=== PATIENT | female | born 1975 | race Two or more races ===

== ENCOUNTER 2017-06-25 16:20 | Emergency (ER) | payer MEDICAID ==
[~2017-06-25] VITALS: Ht 162.6 cm; Wt 59.0 kg
[2017-06-25 19:48] VITALS: BP 120/81
[2017-06-25] MEDS ORDERED: LIDOCAINE 1% HCL (LOCAL ANESTH.) INJ 20ML MDV IJ ONE (20:00)
[2017-06-25] MEDS ORDERED: TETANUS-DIPTH-ACEL PERTUSSIS 0.5ML SYRG IM ONE (20:00)
== END 2017-06-25 20:24 | disposition home or self-care (01) ==
LOC: ER 16:26
DX: S61.211A Laceration without foreign body of left index finger without damage to nail, initial encounter (principal); S61.412A Laceration without foreign body of left hand, initial encounter; W25.XXXA Contact with sharp glass, initial encounter; Y93.G1 Activity, food preparation and clean up; Y92.89 Other specified places as the place of occurrence of the external cause; Y99.8 Other external cause status
CPT/HCPCS: 12002; 90471; 90715

== ENCOUNTER 2018-09-13 16:53 | Emergency (ER) | payer MEDICAID ==
[~2018-09-13] VITALS: Ht 162.6 cm; Wt 56.7 kg
[2018-09-13 21:04] VITALS: BP 93/52
== END 2018-09-13 21:07 | disposition home or self-care (01) ==
LOC: ER 16:54
DX: N63.10 Unspecified lump in the right breast, unspecified quadrant (principal); F17.210 Nicotine dependence, cigarettes, uncomplicated; Z90.710 Acquired absence of both cervix and uterus
CPT/HCPCS: 76642

== ENCOUNTER 2019-06-08 16:27 | Emergency (ER) | payer MEDICAID ==
[~2019-06-08] VITALS: Ht 162.6 cm; Wt 62.6 kg
[2019-06-08 17:57] VITALS: BP 103/73
[2019-06-08] MEDS ORDERED: KETOROLAC TROMETH 60MG/2ML VIAL IM ONE (18:15)
== END 2019-06-08 18:41 | disposition home or self-care (01) ==
LOC: ER 16:27
DX: J06.9 Acute upper respiratory infection, unspecified (principal); R51 Headache; F17.210 Nicotine dependence, cigarettes, uncomplicated
CPT/HCPCS: 71046; 96372; 99283; J1885

== ENCOUNTER 2024-09-14 14:08 | Outpatient (CLI) | payer MEDICAID ==
[2024-09-14 14:36] LABS: Basophils # (auto) 0 10 ^3/uL (0-0.2); Basophils % (auto) 0.3 % (0.0-2.0); Eosinophils # (auto) 0 10 ^3/uL (0-0.8); Eosinophils % (auto) 0.4 % (0.0-7.0); Hemoglobin 13.6 g/dL (12.2-16.2); Lymphocytes # (auto) 4.4 10 ^3/uL (0.4-5.4); Lymphocytes % (auto) 40.5 % (10.0-50.0); Mean Corpuscular Hemoglobin 30.6 pg (28.0-32.0); Monocytes # (auto) 0.9 10 ^3/uL (0-1.3); Monocytes % (auto) 8.6 % (0.0-12.0); Neutrophils # (auto) 5.5 10 ^3/uL (1.6-8.6); Neutrophils % (auto) 50.2 % (37.0-80.0); Platelet Count (auto) 306 10^3/uL (140-450); Red Blood Cells 4.44 10^6/uL (4.0-5.20); Red Cell Distribution Width 14.1 % (11.8-14.3); White Blood Cell 10.9 10^3/uL (4.4-10.8)
[2024-09-14 15:19] LABS: Alanine Aminotransferase 35 U/L (7-40); Albumin 4.6 g/dL (3.2-4.8); Anion Gap 8 (5-15); Aspartate Aminotransferase 19 U/L (13-40); Bilirubin, Total 0.6 mg/dL (0.2-1.0); Blood Urea Nitrogen 11 mg/dL (9-23); CRP High Sensitivity 0.07 mg/dL (<1.0); Calcium 9.4 mg/dL (8.7-10.4); Carbon Dioxide 25 mmol/L (20-31); Glucose 86 mg/dL (74-106); Potassium 3.6 mmol/L (3.5-5.1); Sodium 140 mmol/L (136-145)
[2024-09-14 15:20] LABS: Alkaline Phosphatase 44 U/L (46-116); Chloride 107 mmol/L (98-107)
[2024-09-14 15:22] LABS: Follicle Stimulating Hormone 19.99 IU/L (SEE BELOW); Leuteinizing Hormone 12.8 IU/L; Thyroid Stimulating Hormone 1.41 uIU/mL (0.55-4.78)
[2024-09-14 15:23] LABS: Prolactin 10.48 ng/mL (2.8-29.2)
[2024-09-14 15:24] LABS: Free T4 (Free Thyroxine) 1.25 ng/dL (0.89-1.76)
[2024-09-14 15:31] LABS: Beta HCG, Quantitative 0.5 mIU/mL (1.5-4.2)
[2024-09-16 06:07] LABS: Sex Hormone Binding Globulin 55.1 nmol/L (24.6-122.0)
[2024-09-16 08:07] LABS: Estradiol 70.8 pg/mL (.); Testosterone <3 ng/dL (4-50)
== END 2024-09-14 17:00 | disposition home or self-care (01) ==
LOC: LAB 14:08
DX: L40.50 Arthropathic psoriasis, unspecified (principal); E55.9 Vitamin D deficiency, unspecified; Z79.899 Other long term (current) drug therapy; Z79.620 Long term (current) use of immunosuppressive biologic
CPT/HCPCS: 36415; 80053; 82306; 82626; 82670; 83001; 83002; 83036; 84146; 84270; 84402; 84403; 84439; 84443; 84702; 85025; 86141